=== PATIENT | female | born 1965 | race Caucasian/White ===

== ENCOUNTER 2019-03-03 11:24 | Emergency (ER) | payer OTHER ==
[~2019-03-03] VITALS: Ht 149.9 cm; Wt 44.2 kg
[2019-03-03] MEDS ORDERED: CHLO125TA (11:35)
[2019-03-03] MEDS ORDERED: CELE1CAP9 (11:35)
[2019-03-03] MEDS ORDERED: LORA-674 (11:35)
[2019-03-03] MEDS ORDERED: GABA-845 (11:35)
[2019-03-03] MEDS ORDERED: HYDR200T3 (11:35)
[2019-03-03] MEDS ORDERED: DILT120C89 (11:35)
[2019-03-03] MEDS ORDERED: CHLORTHALIDONE 25 MG TAB PO ONE (13:15)
[2019-03-03 13:44] LABS: BASO % 0.5 % (0.0-1.0); EOS # 0.1 10^3/uL (0.0-0.5); EOS % 1.4 % (0.0-3.0); HEMATOCRIT 42.2 % (36.0-47.0); HEMOGLOBIN 13.7 g/dl (12.0-15.5); LYMPH # 1.7 10^3/uL (1.5-5.0); LYMPH % 26.8 % (24.0-44.0); MEAN CORPUSCULAR HEMOGLOBIN 29.8 pg (27.0-33.0); MEAN CORPUSCULAR HGB CONC 32.5 g/dl (32.0-36.5); MEAN CORPUSCULAR VOLUME 91.7 fl (80.0-96.0); MONO # 0.6 10^3/uL (0.0-0.8); MONO % 9.2 % (0.0-5.0); NEUTROPHILS # 3.9 10^3/uL (1.5-8.5); NEUTROPHILS % 61.9 % (36.0-66.0); PLATELET COUNT, AUTOMATED 266 10^3/uL (150-450); WHITE BLOOD COUNT 6.3 10^3/uL (4.0-10.0)
--- NOTE | 2019-03-03 14:03 | REP ---
Clinical: Bilateral shoulder pain. Technique: Internal rotation, external rotation, and Y view of the right and left shoulder. Findings: The right shoulder demonstrates evidence for prior surgery along with early moderate arthritic changes and small calcification suggesting calcific tendinopathy. No acute fracture dislocation. Left shoulder appears normal. Impression: Arthritic and postsurgical changes to the right shoulder. Normal left shoulder. Electronically Signed by Oswaldo Ibanez MD 03/03/2019 01:54 P
--- NOTE | 2019-03-03 14:05 | REP ---
Clinical: Trauma. Technique: AP and lateral views of the right tibia / fibula. Findings: Osseous structures, joint spaces, and surrounding soft tissues are normal. No acute fracture or dislocation. No subcutaneous emphysema or foreign body. Impression: Normal right tibia / fibula. Electronically Signed by Oswaldo Ibanez MD 03/03/2019 01:56 P
--- NOTE | 2019-03-03 14:05 | REP ---
Two-view chest: 03/03/2019. Indication: Hypertension. Comparison: None. Findings: The lungs are clear. There is no pleural effusion or pneumothorax. The cardiomediastinal silhouette is unremarkable. Postoperative sequelae of the right shoulder are present with surgical anchor noted. Impression: No acute cardiopulmonary process. Electronically Signed by David Menon DO 03/03/2019 01:56 P
--- NOTE | 2019-03-03 14:06 | REP ---
Clinical: Trauma. Technique: AP, lateral, bilateral oblique views right foot . Findings: The osseous structures and joint spaces are intact and normal. There is no evidence for acute fracture or dislocation. Surrounding soft tissues are unremarkable. No subcutaneous emphysema or radiodense foreign body. Impression: Normal right foot series . No acute fracture or dislocation. Electronically Signed by Oswaldo Ibanez MD 03/03/2019 01:56 P
--- NOTE | 2019-03-03 14:09 | REP ---
MRI brain: 03/03/2019. Indication: Head trauma. Comparison: None. Technique: Unenhanced axial CT images of the brain were obtained from skull base to vertex with coronal reconstructions provided. Findings: There is no acute intracranial hemorrhage, acute cortical infarction, mass effect, hydrocephalus or acute calvarial fracture. Anterior vertex scalp hematoma is noted. Impression: No acute intracranial process. Electronically Signed by David Menon DO 03/03/2019 02:00 P
[2019-03-03 14:12] LABS: BLOOD UREA NITROGEN 15 MG/DL (7-18); CARBON DIOXIDE LEVEL 26 MEQ/L (21-32); CHLORIDE LEVEL 109 MEQ/L (98-107); GLOMERULAR FILTRATION RATE > 60.0 (>51); GLUCOSE, FASTING 117 MG/DL (70-100); POTASSIUM SERUM 3.5 MEQ/L (3.5-5.1); SODIUM LEVEL 141 MEQ/L (136-145)
--- NOTE | 2019-03-03 14:16 | REP ---
CT cervical spine: 03/03/2019. Indication: Cervical spine trauma. Comparison: None. Technique: Unenhanced axial CT images of the cervical spine were obtained with coronal and sagittal reconstructions provided. Findings: There is no acute fracture, subluxation or dislocation. There is minimal retrolisthesis of C4 on C5 and C5 on C6 as well as minimal anterolisthesis of C6 on C7. Multilevel spondylosis is noted most pronounced at C5/C6. No severe spinal canal narrowing is present. There is no hemorrhage or additional acute post traumatic sequelae within the spinal canal detected. Para septal emphysema sequelae of the visualized lungs are present as well as bullae of the apices. Impression: No acute osseous injuries of the cervical spine. Electronically Signed by David Menon DO 03/03/2019 02:06 P
--- NOTE | 2019-03-03 15:41 | ECGEPIP ---
[facility] - ED Test Date: 2019-03-03 Pat Name: UZAIR JARRELL Department: Room: - Gender: Female [employer] Observer: KENISHA : 1965 Requested By: ISAAC Thayer Order Number: [id number] Reading MD: Russ Alanis Measurements Intervals Marine Rate: 77 P: 48 MS: 121 QRS: 83 QRSD: 85 T: 79 QT: 378 QTc: 429 Interpretive Statements SINUS RHYTHM Comparison tracing not on file Electronically Signed on 03-03-2019 15:41:33 EST by Russ Alanis
[2019-03-03] MEDS ORDERED: LABETALOL HCL 100 MG/20 ML VIAL IV STA (16:04)
[2019-03-03 16:41] VITALS: BP 173/107
[2019-03-03] MEDS ORDERED: ACETAMINOPHEN TAB 650MG DOSE (2X325MG) PO ONE (19:00)
[2019-03-03 19:38] VITALS: BP 159/99
== END 2019-03-03 19:40 | disposition home or self-care (01) ==
LOC: M ED 11:24
DX: Z04.71 Encounter for examination and observation following alleged adult physical abuse (principal); M19.011 Primary osteoarthritis, right shoulder; M47.812 Spondylosis without myelopathy or radiculopathy, cervical region; I10 Essential (primary) hypertension; Z79.899 Other long term (current) drug therapy; Z91.14 Patient's other noncompliance with medication regimen